=== PATIENT | female | born 1965 | race African-American/Black ===

== ENCOUNTER 2016-10-09 14:41 | Emergency (ER) | payer BC, OTHER ==
--- NOTE | ~2016-10-09 | EKG ---
PATIENT: SUDEEP LUTZ UNIT #: [id number] Ventricular Rate: 45 BPM Atrial Rate: 45 BPM P-R Interval: 148 ms QRS Duration: 88 ms Q-T Interval: 464 ms QTC Calculation(Bezet): 401 ms P [place]: 60 degrees Calculated R [place]: 43 degrees Calculated T [place]: 51 degrees Diagnosis Line: Sinus bradycardia Diagnosis Line: Otherwise normal ECG Diagnosis Line: When compared with ECG of 16-MAY-2016 16:54, Diagnosis Line: QT has shortened Diagnosis Line: Confirmed by BRIAN HOFFMAN MD ([id number]) on 10/09/2016 Diagnosis Line: 6:10:56 PM INTERPRETING MD: DALTON ALCANTARA
[~2016-10-09 14:41] MED LIST: ASPIRIN PO; CLONAZEPAM0.5 MG PO; CLONIDINE HCL0.3 MG PO; CYMBALTA PO; EQUETRO100 MG PO; GABAPENTIN600 MG PO; KLONOPIN PO; LISINOPRIL PO; LISINOPRIL10 MG PO; LORTAB 7.5-5001 TAB PO; MULTI-VITAMIN1 TAB PO; MULTIVITAMIN W/1 TAB PO; PREMARIN PO; PROZAC PO; SYNTHROID112 MCG PO; TOPAMAX200 MG PO; VALTREX PO; WELLBUTRIN PO; WELLBUTRIN XL PO; ZESTORETIC 20/11 TAB PO; ZYRTEC PO
[2016-10-09 15:35] LABS: URINE SOURCE CLEAN CATCH
[2016-10-09 15:39] LABS: BASOPHIL% 0.5 % (0-2.5); EOSINOPHIL% 0.5 % (0.0-7.0); HEMATOCRIT 38.5 % (35.0-45.0); HEMOGLOBIN 12.1 gm/dL (12.0-16.0); LYMPHOCYTE# 2.5 X10e3 (1.0-3.5); LYMPHOCYTE% 44.3 % (17.0-45.0); MEAN CORPUSCULAR HEMOGLOBIN 26.8 PG (28-34); MEAN CORPUSCULAR HGB CONC 31.5 g/dL (30-36); MEAN PLATELET VOLUME 8.2 FL (6.5-11.5); MONOCYTE# 0.4 X10e3 (0-1.0); MONOCYTE% 6.2 % (3.0-12.0); NEUTROPHIL# 2.8 X10e3 (1.5-7.1); NEUTROPHIL% 48.5 % (40-75); PLATELET COUNT 183 X10e3 (140-420); RED BLOOD COUNT 4.53 X10e (3.90-5.30); WHITE BLOOD COUNT 5.7 X10e3 (4.0-10.5)
[2016-10-09 15:39] LABS: POC - CKMB <1.0 ng/mL (0.0-7.9); POC - TROPONIN <0.05 ng/mL (<=0.05)
[2016-10-09 15:40] LABS: DIFF IND NO
[2016-10-09 15:41] LABS: URINE APPEARANCE CLEAR; URINE BILIRUBIN NEG (NEG); URINE BLOOD NEG (NEG); URINE COLOR YELLOW; URINE GLUCOSE NEG (NEG); URINE KETONE NEG (NEG); URINE LEUKOCYTE ESTERASE NEG (NEG); URINE NITRATE NEG (NEG); URINE PROTEIN NEG (NEG); URINE SPECIFIC GRAVITY 1.013 (1.003-1.035); URINE UROBILINOGEN 0.2 MG/DL (NEG)
[2016-10-09 15:48] LABS: CULTURE INDICATED? NO
[2016-10-09 16:07] LABS: ALBUMIN SERUM 4.2 g/dL (3.5-5.0); ALKALINE PHOSPHATASE 83 U/L (32-92); ALT (SGPT) 17 U/L (10-40); AST (SGOT) 20 U/L (10-42); BILIRUBIN,TOTAL 0.4 mg/dL (0.2-2.0); BLOOD UREA NITROGEN 14 mg/dL (9-23); CALCIUM SERUM 9.2 mg/dL (8.4-10.2); CARBON DIOXIDE 25 mmol/L (22-31); CHLORIDE 108 mmol/L (100-111); CREATININE SERUM 0.8 mg/dL (0.6-1.4); GLOM FILT RATE Estimated 99.7 mL/min (>60); GLUCOSE FASTING 87 mg/dL (70-110); POTASSIUM 3.7 mmol/L (3.5-5.1); PROTEIN TOTAL SERUM 7.4 g/dL (6.0-8.3); SODIUM 138 mmol/L (135-145)
[2016-10-09 16:08] LABS: BILIRUBIN, DIRECT <0.1 mg/dL (0.0-0.2); BILIRUBIN,INDIRECT 0.3 mg/dL (0.0-0.9)
== END 2016-10-09 18:12 | disposition home or self-care (01) ==
LOC: CED 14:41
PROVIDERS: Emergency Medicine
DX: F41.9 Anxiety disorder, unspecified (principal); I10 Essential (primary) hypertension; J45.909 Unspecified asthma, uncomplicated; F31.9 Bipolar disorder, unspecified; Z90.49 Acquired absence of other specified parts of digestive tract
CPT/HCPCS: 36415; 80048; 80076; 81003; 82553; 84484; 85025; 93005; 99283

== ENCOUNTER 2017-01-13 06:47 | Emergency (ER) | payer BC, OTHER ==
--- NOTE | ~2017-01-13 | CR181 ---
[facility]. [facility] A Service of [facility] & [facility] RADIOLOGY TEXT RESULTS PATIENT: SUDEEP LUTZ LOCATION: SED : 65 UNIT #: [id number] AGE: [address]: Rashida Stockton MD SEX: F ORDER DR: [id number] [address] [address] [id number] E MR#: [id number] Acc #: [id number] NAME: SUDEEP LUTZ : 1965 SEX: F STUDY DATE/TIME: 01/13/2017 8:13 UNIT: SED ROOM: STUDY DESCRIPTION: CR Lumbar Spine 2 or 3 Views Attending Physician: Rashida Stockton M.D. Ordering Physician: Rashida Stockton M.D. Primary Care Physician: Wayne Houston M.D. MEDICAL IMAGING REPORT This report is preliminary unless electronic signature is present. EXAM Lumbar series, 01/13/2017. INDICATIONS 51-year-old female low back pain and radiculopathy since Thursday. Bulging herniated disc. TECHNIQUE Three views. COMPARISON No comparisons. FINDINGS Vertebral body heights and alignment are preserved. No acute fracture. Postop changes include cholecystectomy and prior pelvic surgery. IMPRESSION 1. Negative. 1. Dictated by... Juan R Patton M.D. THIS IS AN ELECTRONICALLY VERIFIED REPORT Juan R Patton M.D. at 01/13/2017 3:27 PM ROSANGELA/jazmin TD: 01/13/2017 10:48 JOB #: [id number] MEDICAL IMAGING REPORT Page 1 of 1
[2017-01-13] MEDS ORDERED: LAMOTRIGINE100 M1 PO (07:06)
[2017-01-13] MEDS ORDERED: SYNTHROID112 MCG PO (07:06)
[2017-01-13] MEDS ORDERED: ZESTORETIC 10-1 EAC1 (07:07)
[2017-01-13] MEDS ORDERED: ALLEGRA PO (07:07)
[2017-01-13] MEDS ORDERED: MULTI VITAMIN1 EACH (07:07)
[2017-01-13 10:38] LABS: URINE SOURCE CLEAN CATCH
[2017-01-13 10:40] LABS: URINE APPEARANCE CLEAR; URINE BILIRUBIN NEG (NEG); URINE BLOOD NEG (NEG); URINE COLOR YELLOW; URINE GLUCOSE NEG (NORM); URINE KETONE NEG (NEG); URINE LEUKOCYTE ESTERASE 1+ (NEG); URINE NITRATE NEG (NEG); URINE PROTEIN NEG (NEG); URINE SPECIFIC GRAVITY 1.015 (1.003-1.035)
[2017-01-13 10:46] LABS: MICRO INDICATED? YES
[2017-01-13 10:47] LABS: URINE BACTERIA 1+ (NEG); URINE RBC 0-2 /[HPF] (0-2); URINE SQUAMOUS EPITHELIAL CELL FEW /[HPF]
== END 2017-01-13 11:27 | disposition home or self-care (01) ==
LOC: SED 06:47
PROVIDERS: Emergency Medicine
DX: S39.012A Strain of muscle, fascia and tendon of lower back, initial encounter (principal); N39.0 Urinary tract infection, site not specified; M54.40 Lumbago with sciatica, unspecified side; I10 Essential (primary) hypertension; J45.909 Unspecified asthma, uncomplicated; Z88.5 Allergy status to narcotic agent; Z88.8 Allergy status to other drugs, medicaments and biological substances; Z79.899 Other long term (current) drug therapy; Z90.49 Acquired absence of other specified parts of digestive tract; Z90.710 Acquired absence of both cervix and uterus; X58.XXXA Exposure to other specified factors, initial encounter; Y93.01 Activity, walking, marching and hiking
CPT/HCPCS: 72100; 81003; 96372; 99283; J1885